=== PATIENT | male | born 1980 | race Caucasian/White ===

== ENCOUNTER 2023-02-07 20:56 | Emergency (ER) | payer OTHER, SELFPAY ==
[2023-02-07 21:03] VITALS: BP 124/84; PULSE 76; RESP 16; TEMP 36.1; O2SAT 97; BMI 48.7
--- NOTE | 2023-02-07 21:23 | US_ITS ---
Final Report Patient: JENNY MADERA Facility:?[facility] Patient ID:?[id number] Site Patient ID:?[id number]. Site :?1980 Study:?US Testicle Bilateral -02/07/2023 10:44:40 PM Ordering Physician:LE BYRNES Final Report: INDICATION: Right testicular pain and swelling for 3 days. COMPARISON: None available. FINDINGS: Ultrasound examination of the testes was performed with a high-resolution linear transducer. The testes are normal in appearance, with smooth margins and uniform internal echogenicity. There is normal and symmetric color and pulse doppler flow. The right testis measures 5.4 x 2.3 x 3.1 cm and the left measures 4.8 x 2.3 x 3.5 cm. The epididymal heads are normal in appearance. There is a mild right hydrocele. There is no sign of hydrocele on the left. A moderate amount of soft tissue is seen lateral to the right testis which may be a hernia. Superior to the left testis is fullness of the vessels suggestive of a small varicocele. No extratesticular masses are seen. IMPRESSION: Possible hernia located lateral to the right testis. Mild right hydrocele. Normal appearance of the testes themselves. Small varicocele located superior to the left testis. Dictated by Patrick Damian MD @ 02/07/2023 11:25:19 PM (Electronic Signature)
--- NOTE | 2023-02-07 21:23 | US_ITS ---
Final Report Patient: JENNY MADERA Facility:?[facility] Patient ID:?[id number] Site Patient ID:?[id number]. Site :?1980 Study:?US Testicle Bilateral -02/07/2023 10:44:40 PM Ordering Physician:LE BYRNES Final Report: INDICATION: Right testicular pain and swelling for 3 days. COMPARISON: None available. FINDINGS: Ultrasound examination of the testes was performed with a high-resolution linear transducer. The testes are normal in appearance, with smooth margins and uniform internal echogenicity. There is normal and symmetric color and pulse doppler flow. The right testis measures 5.4 x 2.3 x 3.1 cm and the left measures 4.8 x 2.3 x 3.5 cm. The epididymal heads are normal in appearance. There is a mild right hydrocele. There is no sign of hydrocele on the left. A moderate amount of soft tissue is seen lateral to the right testis which may be a hernia. Superior to the left testis is fullness of the vessels suggestive of a small varicocele. No extratesticular masses are seen. IMPRESSION: Possible hernia located lateral to the right testis. Mild right hydrocele. Normal appearance of the testes themselves. Small varicocele located superior to the left testis. Dictated by Patrick Damian MD @ 02/07/2023 11:25:19 PM (Electronic Signature)
[2023-02-07 21:24] LABS: Appearance Urine Clear (Clear); Bilirubin Urine Negative (Negative); Blood Urine Negative (Negative); Color Urine Yellow (Yellow); Glucose Urine Negative (Negative); Ketones Urine Negative (Negative); Leukocyte Esterase Urine Negative (Negative); Nitrite Urine Negative (Negative); Protein Urine Negative (Negative)
[2023-02-07 21:37] LABS: RBC Urine 0-2 (0-2); WBC Urine 0-2 (0-5)
--- NOTE | 2023-02-07 23:44 | ED.GENADULT ---
HPI - General Adult General Date Seen: 02/07/23 Chief complaint: Urogenital Problems, Male Stated complaint: Swollen genitals Time Seen by Provider: 02/07/23 21:22 History of Present Illness HPI narrative: This is a very pleasant 42-year-old male with a past medical history including previous skull fractures and TBI, who presents to the ER today for evaluation of pain and swelling involving his right testicle. Patient has not had any recent testicular trauma. He does not have any history of diabetes, immunosuppression. About 3 days ago he began to have pain and swelling involving his right testicle. No pain on the left. Pains been getting gradually worse. Because the pain was not going away he came to the ER this evening. He does not have any pain radiating to his flank, or up into his abdomen. Sometimes he has a little bit of pain in the suprapubic region but his pain is predominantly in the testicle. No urinary symptoms. No fever or chills. No nausea or vomiting. He recalls that he had a similar episode of pain affecting the right testicle about 3 years ago. He can not remember where he was evaluated for it or exactly what his diagnosis was. It sounds like he did not require surgery. He does not know if he had epididymitis, orchitis, or other causes of pain. Related Data Home Medications Medication Instructions Recorded Confirmed No Known Home Medications 02/07/23 02/07/23 Allergies Allergy/AdvReac Type Severity Reaction Status Date / Time No Known Drug Allergies Allergy Verified 02/07/23 21:07 Review of Systems Narrative: Negative except as noted above [facility] Social History Smoking Status: Never smoker Do you use any of these nicotine containing products: None Second hand tobacco smoke exposure: No How often do you have a drink containing alcohol: 2-4 times a month AUDIT-C Alcohol total score: 2 Non-prescribed substance use: denies use Exam Narrative: Exam Narrative: Constitutional: Appears well-developed and well-nourished. Alert. Conversant. Non toxic. HENT: Head: Atraumatic. Nose: Nose normal. Mouth/Throat: Oral mucosa is clear and moist. no trismus. Pharynx normal. Tonsils symmetric. No tonsillar enlargement, erythema, or exudate. Eyes: Conjunctivae normal. EOM normal. Pupils equal, round, and reactive to light. No scleral icterus. Neck: Normal range of motion. Neck supple. No tracheal deviation present. Cardiovascular: Normal rate, regular rhythm. No gallop. No friction rub. No murmur heard. Symmetric radial artery pulses Pulmonary/Chest: Effort normal. No stridor. No respiratory distress. No wheezes. No rales. No rhonchi . No tenderness. Abdominal: Soft. Bowel sounds normal. Protuberant due to body habitus, but No distension. No mass. No tenderness. No rebound. No guarding. No CVA tenderness. : Normal inspection of the suprapubic region, mons pubis. No inguinal masses or lymphadenopathy. Because of body habitus exam may be slightly limited. Normal circumcised penis. The patient does have slight erythema affecting the right hemiscrotum and the right testicle a visibly appears to be slightly larger than left. He is tender over the right testicle without any point tenderness over the epididymis. Epididymis is posterior and appears to be in appropriate position. Both testicles have an appropriate lie. He has bilateral cremasteric reflexes. Palpation of the spermatic cord is not tender. No definite spermatic cord mass on the right. No palpable mass or hernia in the inguinal canal. Musculoskeletal: RUE: Normal range of motion. No tenderness. No deformity LUE: Normal range of motion. No tenderness. No deformity RLE: Normal range of motion. No edema. No tenderness. No deformity LLE: Normal range of motion. No edema. No tenderness. No deformity Neurological: Alert and oriented to person, place, and time. Normal strength. CN II-VII intact. No sensory deficit. GCS eye subscore is 4. GCS verbal subscore is 5. GCS motor subscore is 6. Normal coordination Skin: Skin is warm and dry. No rash noted. No pallor. Normal capillary refill. Psychiatric: Normal mood. Normal affect. Const: Vital Signs, click to edit/add: Vital Signs - 24 hr 02/07/23 21:03 02/08/23 00:06 Temperature 96.9 F L Pulse Rate [Pulse Oximeter] 76 72 Respiratory Rate 16 14 Blood Pressure [Ri ght Upper Arm] 124/84 131/82 Pulse Oximetry 97 97 Oxygen Delivery Me thod Room Air Room Air Course Vital Signs Vital signs: Initial Vital Signs Temperature 96.9 F L 02/07/23 21:03 Temperature Source Temporal Artery Scan 02/07/23 21:03 Pulse Rate 76 02/07/23 21:03 Respiratory Rate 16 02/07/23 21:03 Blood Pressure 124/84 02/07/23 21:03 Blood Pressure Mean 97 02/07/23 21:03 Blood Pressure Position Sitting 02/07/23 21:03 Pulse Oximetry 97 02/07/23 21:03 Oxygen Delivery Method Room Air 02/07/23 21:03 Vital Signs Temperature 96.9 F L 02/07/23 21:03 Pulse Rate 76 02/07/23 21:03 Respiratory Rate 16 02/07/23 21:03 Blood Pressure 124/84 02/07/23 21:03 Pulse Oximetry 97 02/07/23 21:03 Oxygen Delivery Method Room Air 02/07/23 21:03 Temperature 96.9 F L 02/07/23 21:03 Pulse Rate 72 02/08/23 00:06 Respiratory Rate 14 02/08/23 00:06 Blood Pressure 131/82 02/08/23 00:06 Pulse Oximetry 97 02/08/23 00:06 Oxygen Delivery Method Room Air 02/08/23 00:06 Medical Decision Making MDM Narrative Medical decision making narrative: 42-year-old gentleman presenting to the ER today with 3 days of right testicular pain. No trauma. Urinalysis is negative for UTI. Symptoms not really consistent for cystitis, pyelonephritis, kidney stone. Initial concern was for possible torsion, orchitis, epididymitis. Exam does not show any evidence for scrotal cellulitis, scrotal abscess, perineal cellulitis, Diego's gangrene. Left hemiscrotum normal. Scrotal ultrasound was obtained and reveals an apparently normal testicle and a possible hernia adjacent to the right testicle. Because the presence of the hernia on ultrasound does not correlate with my physical exam, will obtain labs and CT for further evaluation. CT came back showing evidence for a hydrocele adjacent to the right testicle. No evidence for hernia. CT also mentions possible bladder thickening in the setting of decompressed bladder. Urinalysis is negative for any signs of urinary tract infection. I do not think the bladder wall thickening indicates the presence of active cystitis. Laboratory workup is reassuring with a normal white count, normal hemoglobin, normal kidney function and electrolytes. No evidence for other acute surgical emergency. With reasonable clinical comment is having the patient is safe for discharge home and outpatient neurology follow-up. Lab Data Labs: Lab Results 02/07/23 02/07/23 Range/Units 21:16 23:55 WBC 9.85 (4.50-11.00) K/uL RBC 4.81 (4.30-5.90) m/uL Hgb 14.2 (13.5-17.5) gm/dL Hct 43.9 (37.0-53.0) % MCV 91 (80-100) fL MCH 30 (26-34) pg MCHC 32 (32-36) gm/dL RDW Coeff of Scott 13.4 (11.5-15.5) % Plt Count 226 (140-440) K/uL Neut % (Auto) 56.1 (42.0-72.0) % Lymph % (Auto) 28.2 (20-44) % [place] % (Auto) 10.9 (0.0-11.0) % Eos % (Auto) 3.8 (0.0-7.0) % Baso % (Auto) 0.4 (0.0-3.0) % Neut # (Auto) 5.53 (1.7-7.0) K/uL Lymph # (Auto) 2.78 (0.90-2.90) K/uL [place] # (Auto) 1.10 H (0.00-0.90) K/UL Eos # (Auto) 0.37 (0.00-0.50) K/uL Baso # (Auto) 0.04 (0.00-0.30) K/uL Abs Immat Gran (auto) 0.06 (0.00-0.30) K/uL Imm/Tot Granulo (auto) 0.6 % Sodium 139 (135-149) mmol/L Potassium 4.2 (3.6-5.1) mmol/L Chloride 104 (96-114) mmol/L Carbon Dioxide 28 (20-32) mmol/L Anion Gap 7 (7-15) mEq/L BUN 13 (5-24) mg/dL Creatinine 0.9 (0.5-1.5) mg/dL Estimated Creat Clear 108.01 Estimated GFR 110 ml/min Glucose 107 (60-115) mg/dL Lactate 1.7 (0.5-1.9) mmol/L Calcium 8.8 (8.4-10.6) mg/dL Urine Color Yellow (Yellow) Urine Appearance Clear (Clear) Urine pH 7.0 (5.0-8.5) Ur Specific [place] 1.020 (1.000-1.030) Urine Protein Negative (Negative) Urine Glucose (UA) Negative (Negative) Urine Ketones Negative (Negative) Urine Blood Negative (Negative) Urine Nitrite Negative (Negative) Urine Bilirubin Negative (Negative) Urine Urobilinogen 1.0 (0.2-1.0) Ur Leukocyte Esterase Negative (Negative) Urine RBC 0-2 (0-2) Urine WBC 0-2 (0-5) Ur Squamous Epith Cells None (None-Few) Urine Bacteria None (None) Imaging Data US Scrotum: Radiologist's impression: IMPRESSION: Possible hernia located lateral to the right testis. Mild right hydrocele. Normal appearance of the testes themselves. Small varicocele located superior to the left testis. CT scan - abdomen: Radiologist's impression: IMPRESSION: Small right hydrocele without evidence of scrotal inflammation. Mild circumferential bladder wall thickening in the setting of a non-distended bladder. Recommend correlation with urinalysis to exclude cystitis. Fatty infiltration of the submucosa throughout the length of the colon, which can be seen with chronic inflammation and obesity. Discharge Plan Discharge Clinical Impression: Hydrocele Patient Disposition: Home, Self-Care Condition: Stable Instructions: Hydrocele (ED) Additional Instructions: Please come back to the ER right away if you have worsening pain, high fever, trouble with urination, vomiting , significant abdominal pain, or any concerns. Please call Urology to arrange a follow-up appointment. You can follow-up with any urologist of your choice. [place] [facility] has locations in [place] and [place]. You can call their clinic at [phone] for [place] Or [phone] for [place] Prescriptions: No Action No Known Home Medications Follow Up/Referrals: Provider,Not a Local [Primary Care Provider] - Stand Alone Forms: [employer] Info Instructions
--- NOTE | 2023-02-07 23:45 | CT_ITS ---
Final Report Patient: JENNY MADERA Facility:?[facility] Patient ID:?[id number] Site Patient ID:?[id number] Site :?1980 Study:?CT Abdomen/Pelvis with 150cc [id number] contrast-02/08/2023 12:34:24 AM Ordering Physician:Betty Lara Final Report: INDICATION: Right scrotal swelling TECHNIQUE: CT abdomen and pelvis acquired with 150 cc Isovue 370 IV contrast. Permanently recorded images are archived. COMPARISON: Scrotal ultrasound from the same day. FINDINGS: Lower chest: Unremarkable. Liver: Unremarkable. Normal in size and attenuation. No suspicious masses. Gallbladder and bile ducts: Unremarkable. No stones or inflammation. No biliary dilatation. Pancreas: Unremarkable. No mass or inflammation. Spleen: Unremarkable. Normal in size. No masses. Adrenal glands: Unremarkable. No nodules. Kidneys, Ureters, and Bladder: Bilateral simple renal cysts. 3 mm nonobstructing left nephrolith. Unremarkable ureters. Mild circumferential bladder wall thickening in the setting of a non-distended bladder. GI tract: There is submucosal fatty infiltration of the colon throughout its entire length. No acute inflammatory changes. Normal appendix. Vasculature: Abdominal aorta is normal in caliber. Mesenteric arteries are patent. Lymph nodes: No lymphadenopathy. Peritoneum/Abdominal Wall: Unremarkable. No hernia. No free air or significant free fluid. Pelvis: Small right hydrocele. Bones: Unremarkable for age. IMPRESSION: Small right hydrocele without evidence of scrotal inflammation. Mild circumferential bladder wall thickening in the setting of a non-distended bladder. Recommend correlation with urinalysis to exclude cystitis. Fatty infiltration of the submucosa throughout the length of the colon, which can be seen with chronic inflammation and obesity. Please note that all CT scans at this facility use dose modulation, iterative reconstruction, and/or weight-based dosing when appropriate to reduce radiation dose to as low as reasonably achievable. Dictated by Jogre A Almanza MD @ 02/08/2023 12:54:50 AM (Electronic Signature)
--- NOTE | 2023-02-07 23:45 | CT_ITS ---
Final Report Patient: JENNY MADERA Facility:?[facility] Patient ID:?[id number] Site Patient ID:?[id number]. Site :?1980 Study:?CT Abdomen/Pelvis with 150cc [id number] contrast-02/08/2023 12:34:24 AM Ordering Physician:Betty Lara Final Report: INDICATION: Right scrotal swelling TECHNIQUE: CT abdomen and pelvis acquired with 150 cc Isovue 370 IV contrast. Permanently recorded images are archived. COMPARISON: Scrotal ultrasound from the same day. FINDINGS: Lower chest: Unremarkable. Liver: Unremarkable. Normal in size and attenuation. No suspicious masses. Gallbladder and bile ducts: Unremarkable. No stones or inflammation. No biliary dilatation. Pancreas: Unremarkable. No mass or inflammation. Spleen: Unremarkable. Normal in size. No masses. Adrenal glands: Unremarkable. No nodules. Kidneys, Ureters, and Bladder: Bilateral simple renal cysts. 3 mm nonobstructing left nephrolith. Unremarkable ureters. Mild circumferential bladder wall thickening in the setting of a non-distended bladder. GI tract: There is submucosal fatty infiltration of the colon throughout its entire length. No acute inflammatory changes. Normal appendix. Vasculature: Abdominal aorta is normal in caliber. Mesenteric arteries are patent. Lymph nodes: No lymphadenopathy. Peritoneum/Abdominal Wall: Unremarkable. No hernia. No free air or significant free fluid. Pelvis: Small right hydrocele. Bones: Unremarkable for age. IMPRESSION: Small right hydrocele without evidence of scrotal inflammation. Mild circumferential bladder wall thickening in the setting of a non-distended bladder. Recommend correlation with urinalysis to exclude cystitis. Fatty infiltration of the submucosa throughout the length of the colon, which can be seen with chronic inflammation and obesity. Please note that all CT scans at this facility use dose modulation, iterative reconstruction, and/or weight-based dosing when appropriate to reduce radiation dose to as low as reasonably achievable. Dictated by Jorge A Almanza MD @ 02/08/2023 12:54:50 AM (Electronic Signature)
[2023-02-08 00:03] LABS: Lactate* 1.7 mmol/L (0.5-1.9)
[2023-02-08 00:04] LABS: Basophils Absolute Auto 0.04 K/uL (0.00-0.30); Basophils Percent Auto 0.4 % (0.0-3.0); Eosinophils Absolute Auto 0.37 K/uL (0.00-0.50); Eosinophils Percent Auto 3.8 % (0.0-7.0); Hematocrit 43.9 % (37.0-53.0); Hemoglobin* 14.2 gm/dL (13.5-17.5); Immature Granulocytes Abs Auto 0.06 K/uL (0.00-0.30); Immature Granulocytes Pct Auto 0.6 %; Lymphocytes Absolute Auto 2.78 K/uL (0.90-2.90); Lymphocytes Percent Auto 28.2 % (20-44); Mean Corpuscular HGB Conc 32 gm/dL (32-36); Mean Corpuscular Hemoglobin 30 pg (26-34); Mean Corpuscular Volume 91 fL (80-100); Monocytes Percent Auto 10.9 % (0.0-11.0); Neutrophils Absolute Auto 5.53 K/uL (1.7-7.0); Neutrophils Percent Auto 56.1 % (42.0-72.0); Platelet Count* 226 K/uL (140-440); RDW Coefficient of Variation % 13.4 % (11.5-15.5); Red Blood Count 4.81 m/uL (4.30-5.90); White Blood Count* 9.85 K/uL (4.50-11.00)
[2023-02-08 00:05] LABS: Slide Review Reflex No
[2023-02-08 00:06] VITALS: BP 131/82; PULSE 72; RESP 14; O2SAT 97
[2023-02-08 00:18] LABS: Chloride* 104 mmol/L (96-114)
[2023-02-08 00:19] LABS: Potassium* 4.2 mmol/L (3.6-5.1); Sodium* 139 mmol/L (135-149)
[2023-02-08 00:22] LABS: Anion Gap 7 mEq/L (7-15); Blood Urea Nitrogen* 13 mg/dL (5-24); Carbon Dioxide* 28 mmol/L (20-32); Creatinine* 0.9 mg/dL (0.5-1.5); Est. Creatinine Clearance* 108.01; Estimated Glomerular Filt Rate 110 ml/min
[2023-02-08 00:23] LABS: Calcium* 8.8 mg/dL (8.4-10.6); Glucose* 107 mg/dL (60-115)
== END 2023-02-08 01:12 | disposition home or self-care (01) ==
PROVIDERS: Emergency Provider Emergency Medicine
DX: N43.3 Hydrocele, unspecified (principal)
CPT/HCPCS: 36415; 74177; 76870; 80048; 81001; 83605; 85025; 93976; 99284; Q9967